=== PATIENT | male | born 1965 | race Caucasian/White ===

== ENCOUNTER 2019-01-12 07:30 | Day surgery (SDC) | payer OTHER ==
[~2019-01-12] VITALS: Ht 185.4 cm; Wt 95.3 kg
[2019-01-12] MEDS ORDERED: LIDOCAINE 2% 1000 MG/50 ML VIAL INJ ONE (09:31)
[2019-01-12] MEDS ORDERED: fentaNYL 0.05 MG/ML VIAL ONE (09:57)
[2019-01-12] MEDS: MORPHINE SULFATE 2 MG/ML SYR IVP PRN ×2 (10:23→10:45)
[2019-01-12] MEDS ORDERED: fentaNYL 0.05 MG/ML VIAL IVP ONE (10:30)
[2019-01-12] MEDS ORDERED: ACETAMINOPHEN EXTRA STRENGTH 500 MG TAB PO PRN (11:20)
[2019-01-12] MEDS ORDERED: ACETAMINOPHEN EXTRA STRENGTH 500 MG TAB ONE (11:29)
[2019-01-19] MEDS ORDERED: fentaNYL 0.05 MG/ML VIAL IVP ONE (09:50)
[2019-01-19] MEDS ORDERED: MIDAZOLAM 2 MG/2 ML VIAL IV ONE (09:50)
== END 2019-01-19 11:35 | disposition home or self-care (01) ==
LOC: MDS 07:30 → MMU 07:31 → MDS 11:20
PROVIDERS: ATTEND Internal Medicine Gastroenterology
DX: K74.0 Hepatic fibrosis (principal); K75.9 Inflammatory liver disease, unspecified; E66.9 Obesity, unspecified; Z68.27 Body mass index [BMI] 27.0-27.9, adult; Z72.89 Other problems related to lifestyle; Z79.899 Other long term (current) drug therapy
CPT/HCPCS: 36415; 47000; 76942; 86677; 88307; 88313; J2001; J2270; J3010; Q0092

== ENCOUNTER 2019-01-19 07:51 | Day surgery (SDC) | payer OTHER ==
[2019-01-19] MEDS ORDERED: LIDOCAINE 2% 100 MG/5 ML UJET TP ONE (09:00)
[2019-01-19] MEDS ORDERED: MIDAZOLAM 2 MG/2 ML VIAL ONE (09:00)
[2019-01-19] MEDS ORDERED: fentaNYL 0.05 MG/ML VIAL ONE (09:00)
== END 2019-01-19 11:35 | disposition home or self-care (01) ==
LOC: MOR 07:51 → MMU 07:57 → MOR 11:35
PROVIDERS: ATTEND Internal Medicine Gastroenterology
DX: K57.30 Diverticulosis of large intestine without perforation or abscess without bleeding (principal); K44.9 Diaphragmatic hernia without obstruction or gangrene; K20.9 Esophagitis, unspecified; K31.9 Disease of stomach and duodenum, unspecified; E66.9 Obesity, unspecified; Z68.30 Body mass index [BMI] 30.0-30.9, adult; Z72.89 Other problems related to lifestyle; Z79.899 Other long term (current) drug therapy
CPT/HCPCS: 43239; 45378; J2250; J3010